=== PATIENT | female | born 1970 | race Caucasian/White ===

== ENCOUNTER 2021-09-11 11:36 | Emergency (ER) | payer OTHER ==
[~2021-09-11] VITALS: Ht 144.8 cm; Wt 60.8 kg
[2021-09-11 11:45] VITALS: BP 124/81
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
[2021-09-11] MEDS ORDERED: KETOROLAC 60 MG/2 ML VIAL IM ONE (12:20)
[2021-09-11 13:50] VITALS: BP 120/78
[2021-09-11] MEDS ORDERED: NAPR-1704 PO (14:09)
[2021-09-11] MEDS ORDERED: ACET-8386 PO (14:09)
--- NOTE | 2021-09-11 14:47 | NUR ---
Patient discharged with v/s stable. Written and verbal after care instructions given and explained with teach back. Patient alert, oriented and verbalized understanding of instructions. Ambulatory with steady gait. All questions addressed prior to discharge. ID band removed. Patient advised to follow up with PMD. Rx of norco/naproxen given. Patient educated on indication of medication including possible reaction and side effects. Opportunity to ask questions provided and answered.
== END 2021-09-11 14:47 | disposition home or self-care (01) ==
LOC: MED 11:36
DX: S20.212A Contusion of left front wall of thorax, initial encounter (principal); S30.1XXA Contusion of abdominal wall, initial encounter; M54.6 Pain in thoracic spine; M54.2 Cervicalgia; E11.9 Type 2 diabetes mellitus without complications; Z79.1 Long term (current) use of non-steroidal anti-inflammatories (NSAID); Z79.891 Long term (current) use of opiate analgesic; V89.2XXA Person injured in unspecified motor-vehicle accident, traffic, initial encounter; Y93.89 Activity, other specified; Y92.410 Unspecified street and highway as the place of occurrence of the external cause; Y99.8 Other external cause status
CPT/HCPCS: 71046; 71120; 93005; 96372; 99284; J1885